=== PATIENT | female | born 1965 | race Hispanic/Latino ===

== ENCOUNTER 2017-05-04 13:41 | Inpatient (IN) | payer BC ==
[~2017-05-04] VITALS: Ht 154.9 cm; Wt 98.2 kg
[2017-05-04] MEDS ORDERED: ONDANSETRON HCL INJ 2 MG/ML VIAL IV STA (16:37)
[2017-05-04 17:21] LABS: BASOPHILS # (AUTO) 0.1 (0.0-0.1); BASOPHILS % 0.5 % (0.0-1.0); HEMATOCRIT 43.1 % (34.2-44.1); HEMOGLOBIN 14.9 g/dL (12.0-16.0); LYMPHOCYTES # (AUTO) 0.5 (1.0-3.2); LYMPHOCYTES % 3.1 % (18.0-39.1); MEAN CORPUSCULAR HEMOGLOBIN 31.4 pg (28-32); MEAN CORPUSCULAR HGB CONC 34.6 g/dL (31-35); MEAN CORPUSCULAR VOLUME 90.9 fL (81-99); MONOCYTES # (AUTO) 1.3 (0.2-0.8); MONOCYTES % 7.8 % (4.4-11.3); NEUTROPHILS # (AUTO) 14.9 (2.1-6.9); NEUTROPHILS % 87.8 % (38.7-80.0); PLATELET COUNT 255 x10e3/uL (140-360); RED BLOOD COUNT 4.74 x10e6/uL (3.6-5.1)
[2017-05-04 17:33] LABS: ALBUMIN/GLOBULIN RATIO 0.6 (0.8-2.0); ANION GAP 23.8 mmol/L (8-16); CALCIUM 10.9 mg/dL (8.4-10.2); CREATININE, SERUM 1.92 mg/dL (0.57-1.11); POTASSIUM 3.8 mmol/L (3.5-5.1)
--- NOTE | 2017-05-04 17:53 | Diagnostic Imaging Report ---
PROCEDURE: Frontal and lateral views of the chest. COMPARISON: None. INDICATIONS: NAUSEA/VOMITING, FEVER, ABSCESS FINDINGS: Lines/tubes: None. Lungs: The lungs are well inflated and clear. There is no evidence of pneumonia or pulmonary edema. Pleura: There is no pleural effusion or pneumothorax. Heart and mediastinum: The heart and the mediastinum are normal. Bones: No acute bony abnormality. IMPRESSION: 1. No acute cardiopulmonary disease. Elsy Bryan M.D. Dictated by: Elsy Bryan M.D. on 05/04/2017 at 18:01 Electronically approved by: Elsy Bryan M.D. on 05/04/2017 at 18:01
[2017-05-04] MEDS ORDERED: DIATRIZOATE MEGL/DIATRIZOA SOD 30 ML BTL PO ONE (18:28)
[2017-05-04] MEDS ORDERED: DEXTROSE 50% SYRINGE 50 ML IV PRN (21:00)
[2017-05-04] MEDS ORDERED: ONDANSETRON HCL INJ 2 MG/ML VIAL IV PRN (21:00)
--- NOTE | 2017-05-04 21:10 | Diagnostic Imaging Report ---
EXAM: CT Abdomen and Pelvis WITH contrast INDICATION: Nausea, vomiting, headache COMPARISON: None. TECHNIQUE: Abdomen and pelvis were scanned utilizing a multidetector helical scanner from the lung base to the pubic symphysis after administration of IV contrast. Coronal and sagittal reformations were obtained. Routine protocol is performed. IV CONTRAST: None. ORAL CONTRAST: None RADIATION DOSE: Total DLP: 857.16 mGy*cm Estimated effective dose: (DLP x 0.015 x size factor) mSv COMPLICATIONS: None FINDINGS: LINES and TUBES: None. LOWER THORAX: Coarse mitral valve calcifications HEPATOBILIARY: No focal hepatic lesions. No biliary ductal dilation. GALLBLADDER: Absent SPLEEN: No splenomegaly. PANCREAS: No focal masses or ductal dilatation. ADRENALS: No adrenal nodules KIDNEYS/URETERS: No hydronephrosis. The right kidney is significantly smaller than the left. No cystic or solid mass lesions. No stones. GI TRACT: No abnormal distention, wall thickening, or evidence of bowel obstruction. Appendix is normal. PELVIC ORGANS/BLADDER: Unremarkable. LYMPH NODES: No lymphadenopathy. VESSELS: There is mild atherosclerotic disease in the aorta and major arterial branches. PERITONEUM / RETROPERITONEUM: No free air or fluid. BONES: Multilevel degenerative changes of the thoracic and lumbar spine SOFT TISSUES: Linear tracts extending from the perianal region are partially visualized and could represent fistulae or abscesses. IMPRESSION: 1. Possible perianal fistulae or abscesses are poorly evaluated on this examination. Consider nonemergent MRI of the pelvis or further evaluation. 2. Otherwise no acute findings to explain the patient's symptoms. Srinath Harrison MD Signed by: Dr. Srinath Harrison M.D. on 05/04/2017 9:06 PM
[2017-05-04] MEDS ORDERED: HYDROMORPHONE 2MG/ML INJ IV PRN (21:15)
[2017-05-04] MEDS: INSULIN REGULAR, HUMAN 100 UNIT/1 ML 3ML VIAL SQ SCH (21:28)
[2017-05-04] MEDS: PIPER-TAZ 3.375 GM 50 ML IV SCH ×2 (21:29→22:00)
[2017-05-04] MEDS: SODIUM CHLORIDE 0.9% 1000ML 1,000 ML IV SCH (21:29)
[2017-05-04 22:00] VITALS: BP 139/68
[2017-05-04 22:45] VITALS: BP 139/68
[2017-05-04] MEDS: VANCOMYCIN 1GM/NS 250 ML 250 ML IV SCH (22:48)
[2017-05-05] MEDS ORDERED: ATORVASTATIN CA20 MG PO (01:17)
[2017-05-05] MEDS ORDERED: LEVOTHYROXINE88 MCG PO (01:17)
[2017-05-05] MEDS ORDERED: NAPROXEN500 MG PO (01:17)
[2017-05-05] MEDS ORDERED: NOVOLOG100 UNIT/1 SQ (01:17)
[2017-05-05] MEDS ORDERED: LANTUS 3ML100 UNITS/ SQ (01:17)
[2017-05-05] MEDS ORDERED: CETIRIZINE HCL10 MG PO (01:17)
[2017-05-05] MEDS ORDERED: PATANASE30.5 GM NS (01:17)
[2017-05-05] MEDS ORDERED: METFORMIN HCL500 MG PO (01:17)
[2017-05-05] MEDS ORDERED: CLARITIN-D 241 EACH PO (01:17)
[2017-05-05] MEDS ORDERED: GABAPENTIN400 MG PO (01:21)
[2017-05-05] MEDS ORDERED: VICTOZA 2-0.6 MG/0.1 SQ (01:21)
[2017-05-05] MEDS ORDERED: LOSARTAN POTAS100 MG PO (01:21)
[2017-05-05] MEDS ORDERED: HYDROCHLOROTHIA25 MG PO (01:21)
[2017-05-05] MEDS: SODIUM CHLORIDE 0.9% 1000ML 1,000 ML IV SCH ×3 (05:00→17:40)
[2017-05-05] MEDS: PIPER-TAZ 3.375 GM 50 ML IV SCH ×3 (06:00→22:10)
[2017-05-05 06:03] VITALS: BP 133/70
[2017-05-05 07:10] LABS: BASOPHILS # (AUTO) 0.1 (0.0-0.1); BASOPHILS % 0.4 % (0.0-1.0); HEMATOCRIT 37.8 % (34.2-44.1); LYMPHOCYTES % 5.7 % (18.0-39.1); MEAN CORPUSCULAR HEMOGLOBIN 31.3 pg (28-32); MEAN CORPUSCULAR HGB CONC 34.4 g/dL (31-35); MEAN CORPUSCULAR VOLUME 91.1 fL (81-99); MONOCYTES # (AUTO) 1.8 (0.2-0.8); MONOCYTES % 9.8 % (4.4-11.3); NEUTROPHILS # (AUTO) 14.9 (2.1-6.9); NEUTROPHILS % 82.8 % (38.7-80.0); PLATELET COUNT 229 x10e3/uL (140-360); RED BLOOD COUNT 4.15 x10e6/uL (3.6-5.1); RED CELL DISTRIBUTION WIDTH 13.2 % (11.7-14.4)
[2017-05-05] MEDS: INSULIN REGULAR, HUMAN 100 UNIT/1 ML 3ML VIAL SQ SCH ×4 (07:40→20:49)
[2017-05-05 07:44] LABS: ALBUMIN 2.2 g/dL (3.5-5.0); ALBUMIN/GLOBULIN RATIO 0.5 (0.8-2.0); ANION GAP 24.6 mmol/L (8-16); CREATININE, SERUM 1.66 mg/dL (0.57-1.11); POTASSIUM 3.6 mmol/L (3.5-5.1)
[2017-05-05 07:52] VITALS: BP 111/67
[2017-05-05] MEDS ORDERED: NON-FORMULARY MEDICATION (Cetirizine Hcl 10 MG) PO PRN (08:15)
[2017-05-05] MEDS ORDERED: LIRAGLUTIDE SQ SCH (09:00)
[2017-05-05] MEDS: HYDROCHLOROTHIAZIDE 25 MG TAB PO SCH (09:00)
[2017-05-05] MEDS ORDERED: NON-FORMULARY MEDICATION (Naproxen 500 MG) PO SCH (09:00)
[2017-05-05] MEDS: GABAPENTIN 400 MG CAP PO SCH ×3 (09:00→20:48)
[2017-05-05] MEDS ORDERED: LORATADINE/PSEUDOEPHEDRINE 24 HR SR TAB PO SCH (09:00)
[2017-05-05] MEDS ORDERED: LEVOTHYROXINE SODIUM 88 MCG TAB PO SCH (09:00)
[2017-05-05] MEDS: LOSARTAN POTASSIUM 100 MG TAB PO SCH (09:00)
[2017-05-05] MEDS ORDERED: OLOPATADINE HCL NS SCH (09:00)
[2017-05-05] MEDS: LORATADINE/PSEUDOEPHEDRINE 24 HR SR TAB PO SCH (09:00)
[2017-05-05] MEDS: METFORMIN HCL 500 MG TAB PO SCH ×2 (09:00→17:57)
[2017-05-05] MEDS: VANCOMYCIN 1GM/NS 250 ML 250 ML IV SCH (09:54)
[2017-05-05 10:06] VITALS: BP 111/67
[2017-05-05] MEDS: INSULIN DETEMIR 100 UNIT/ML PEN SQ SCH (10:13)
[2017-05-05 11:18] LABS: BAND NEUTROPHILS % (MANUAL) 8 %; LYMPHOCYTES % (MANUAL) 5 % (19-48); MONOCYTES % (MANUAL) 4 % (3.4-9.0); NEUTROPHILS % (MANUAL) 83 % (40-74)
[2017-05-05 11:19] LABS: PLATELET ESTIMATE ADEQUATE; PLATELET MORPHOLOGY COMMENT FEW LARGE; RBC MORPHOLOGY COMMENT NORMAL
--- NOTE | 2017-05-05 11:25 | History and Physical ---
HISTORY OF PRESENT ILLNESS: She is a 52-year-old female patient who presented to me with complaint of abscess and painful swelling with draining pus in the right buttock. The patient was also having dizziness, nausea, vomiting, headache. The patient was feeling very bad. Her blood sugar was 426 in the clinic. PAST MEDICAL HISTORY: Diabetes mellitus, hypertension, hyperlipidemia, arthritis, GERD, Ashby palsy, hypothyroidism. ALLERGIES: NO KNOWN DRUG ALLERGIES. MEDICATIONS: The patient was on insulin, thyroid medication, cholesterol medication and dose of metformin. The patient was noncompliant and was not checking her sugar. PAST SURGICAL HISTORY: The patient had hernia repair, tubal ligation, and gallbladder surgery. SOCIAL HISTORY: Denies smoking. Denies using alcohol. FAMILY HISTORY: Diabetes mellitus and stroke in the family. REVIEW OF SYSTEMS: Dizziness, nausea, vomiting, headache and right buttock painful swelling. PHYSICAL EXAMINATION GENERAL: She is a middle-aged female patient lying in bed, not in acute distress. VITAL SIGNS: Temperature 99.9, pulse rate 110, blood pressure 110/70. HEENT: Normocephalic, atraumatic. NECK: No JVD. No lymphadenopathy. LUNGS: Bilateral equal air entry. No rales. No rhonchi. HEART: S1 and S2 regular. No murmur or gallop. ABDOMEN: Soft. Bowel sounds are present. NEUROLOGIC: Nonfocal. No neurologic deficit. SKIN: Right buttock large, tender, fluctuant mass. ADMISSION IMPRESSION AND DIAGNOSES 1. Right buttock abscess. 2. Sepsis with white blood cell count of 18. 3. Diabetes mellitus with uncontrolled sugars. Sugar of 446. 4. Hypertension. 5. Hyperlipidemia. PLAN: The patient will be admitted with the above diagnoses. The patient will be treated with IV vancomycin and IV Zosyn. Surgical consultation with Dr. Mata was requested for I and D. The patient will have Accu-Cheks a.c. and nightly with sliding-scale coverage. Job#: [id number]
[2017-05-05] MEDS: INSULIN LISPRO 100 UNIT/1 ML 3ML VIAL SQ SCH ×2 (12:28→16:30)
[2017-05-05] MEDS ORDERED: LIDOCAINE HCL 1% LOCAL INJ 20 ML VIAL ONE (13:58)
[2017-05-05] MEDS ORDERED: HYDROCODONE/APAP 7.5MG-325MG 1 EA TAB PO PRN (15:45)
[2017-05-05] MEDS ORDERED: ONDANSETRON HCL INJ 2 MG/ML VIAL IV PRN (15:45)
[2017-05-05] MEDS ORDERED: ONDANSETRON HCL INJ 2 MG/ML VIAL ONE ×2 (16:09→18:20)
--- NOTE | 2017-05-05 16:59 | Operative Report ---
DATE OF PROCEDURE: May 05, 2017 PREOPERATIVE DIAGNOSIS: Abscess, right buttock. POSTOPERATIVE DIAGNOSIS: Abscess, right buttock, with necrotizing infection, right buttock. PROCEDURE: Incision and drainage of abscess, right buttock, with excisional debridement of right buttock necrotizing infection, skin and subcutaneous tissue, 120 square centimeters. EMAIL CAMPAIGN SPECIALIST: None. ANESTHESIA: General. INDICATIONS AND FINDINGS: Patient is a 52-year-old female who presented with complaints of pain and swelling of the right buttock. At surgery, there was a necrotizing infection involving the skin and subcutaneous tissue in the right buttock with abscess. Approximately 30 mL of purulent fluid was drained, and the area of debridement was approximately 10 x 12 cm involving skin and subcutaneous tissue. TECHNIQUE: After adequate general endotracheal anesthesia, with the patient in the lithotomy position, the right buttock was prepped and draped in a sterile fashion with Betadine solution. There was a draining sinus with purulent fluid. The sinus tract was opened. Additional purulent fluid drained. A sample was taken for culture and sensitivity. Incision was made through this area, and the abscess cavity was entered. A total of about 30 mL of purulent fluid was drained. There was also a large amount of necrotic tissue. The necrotic skin and subcutaneous tissue were excised back to healthy bleeding tissue. The area of the debridement was approximately 10 x 12 cm. Debridement was done with electrocautery. Once all the necrotic tissue was excised, hemostasis was achieved with electrocautery. The wound was irrigated with saline, then dressed open with saline-moistened gauze and a sterile dressing applied. Patient tolerated the procedure well. Estimated blood loss was 25 mL. There were no complications. All counts were correct. Patient was taken to the recovery room in satisfactory condition. Job#: [id number] cc:BEV RANDALL MD
[2017-05-05] MEDS: PATANASE NS SCH (17:00)
--- NOTE | 2017-05-05 17:16 | Consultation ---
DATE OF CONSULTATION: May 05, 2017 REFERRING PHYSICIAN: Dr. Fabricio Rangel. HISTORY OF PRESENT ILLNESS: Patient is a 52-year-old female with history of diabetes, hypertension, hyperlipidemia, arthritis and hypothyroidism who presented to the emergency room with complaints of pain in her right buttock with purulent drainage. She also complains of nausea, vomiting and dizziness. Symptoms started a few days ago. She also was found to have elevated blood sugar in the emergency room. PAST MEDICAL HISTORY: As stated above. History of diabetes, hypertension, hyperlipidemia, arthritis, gastroesophageal reflux disease, previous Ashby's palsy, hypothyroidism. HOME MEDICATIONS: Insulin, thyroid medicine, cholesterol medication and metformin. PAST SURGICAL HISTORY: She has had previous hernia repair, tubal ligation and cholecystectomy. ALLERGIES: NO KNOWN DRUG ALLERGIES. FAMILY HISTORY: Significant for diabetes and cerebrovascular accident. SOCIAL HISTORY: Patient does not smoke cigarettes and does not drink alcohol. REVIEW OF SYSTEMS: As stated above. She has not had any fever. PHYSICAL EXAMINATION: VITALS: Normal. GENERAL: The patient is awake and alert and in no distress. HEENT: Reveals no scleral icterus. NECK: Has no masses. LUNGS: Equal breath sounds, clear bilaterally. CARDIAC: Regular rate and rhythm with no murmur. ABDOMEN: Soft without tenderness. BUTTOCK AREA: On the right buttock there is area of erythema and induration with an open area of purulent drainage. Does not seem to communicate with the rectum, however. EXTREMITIES: No edema. LABORATORY DATA: White blood count 18,000 on arrival. Hemoglobin and hematocrit are normal. Chemistries: BUN 23, creatinine 1.66 and glucose most recent is 251. ASSESSMENT: A 52-year-old female with an abscess on the right buttock. PLAN: Incision and drainage of abscess to be done in operating room today. Procedure was explained to the patient including risks, benefits and alternatives. She understands the procedure. She has had the opportunity to ask questions. Thank you asking see me to see Ms. Javed. Job#: [id number]
[2017-05-05] MEDS ORDERED: PROPOFOL IV EMULSION 10 MG/ML 20 ML VIAL ONE (18:20)
[2017-05-05] MEDS ORDERED: SEVOFLURANE INHAL SOLN 250 ML PEN BTL ONE (18:20)
[2017-05-05] MEDS ORDERED: LIDOCAINE HCL 2% LOCAL INJ 5 ML SDV VIAL INJ ONE (18:20)
[2017-05-05] MEDS ORDERED: FENTANYL CITRATE/PF 100MCG/2 ML INJ ONE (19:16)
[2017-05-05] MEDS ORDERED: MIDAZOLAM HCL 2 MG/2 ML VIAL ONE (19:16)
[2017-05-05 20:00] VITALS: BP 131/77
[2017-05-05] MEDS: ATORVASTATIN 20 MG TAB PO SCH (20:48)
[2017-05-06] VITALS: BP 106/56
[2017-05-06] MEDS: SODIUM CHLORIDE 0.9% 1000ML 1,000 ML IV SCH (01:36)
[2017-05-06] MEDS: VANCOMYCIN 1GM/NS 250 ML 250 ML IV SCH ×2 (03:15→20:57)
[2017-05-06] MEDS: PIPER-TAZ 3.375 GM 50 ML IV SCH ×3 (05:32→22:38)
[2017-05-06] MEDS: LEVOTHYROXINE SODIUM 88 MCG TAB PO SCH (05:33)
[2017-05-06 07:15] LABS: BASOPHILS # (AUTO) 0.1 (0.0-0.1); BASOPHILS % 0.7 % (0.0-1.0); EOSINOPHILS % 0.2 % (0.0-6.0); HEMATOCRIT 34.3 % (34.2-44.1); HEMOGLOBIN 11.8 g/dL (12.0-16.0); LYMPHOCYTES # (AUTO) 1.4 (1.0-3.2); LYMPHOCYTES % 11.2 % (18.0-39.1); MEAN CORPUSCULAR HEMOGLOBIN 31.5 pg (28-32); MEAN CORPUSCULAR HGB CONC 34.4 g/dL (31-35); MEAN CORPUSCULAR VOLUME 91.5 fL (81-99); MONOCYTES # (AUTO) 1.1 (0.2-0.8); NEUTROPHILS # (AUTO) 9.8 (2.1-6.9); NEUTROPHILS % 77.6 % (38.7-80.0); PLATELET COUNT 203 x10e3/uL (140-360); RED BLOOD COUNT 3.75 x10e6/uL (3.6-5.1); RED CELL DISTRIBUTION WIDTH 13.5 % (11.7-14.4)
[2017-05-06 07:46] VITALS: BP 97/65
[2017-05-06 07:53] LABS: ALBUMIN 1.7 g/dL (3.5-5.0); ALBUMIN/GLOBULIN RATIO 0.5 (0.8-2.0); CALCIUM 8.2 mg/dL (8.4-10.2); CREATININE, SERUM 1.84 mg/dL (0.57-1.11)
[2017-05-06 08:26] LABS: ANION GAP 12.7 mmol/L (8-16)
[2017-05-06 08:27] LABS: POTASSIUM 2.7 mmol/L (3.5-5.1)
[2017-05-06] MEDS: LORATADINE/PSEUDOEPHEDRINE 24 HR SR TAB PO SCH (09:00)
[2017-05-06] MEDS ORDERED: NAPROXEN 250 MG TAB PO SCH (09:00)
[2017-05-06] MEDS ORDERED: POTASSIUM CHLORIDE 20 MEQ TAB CR PO ONE ×2 (09:00→14:30)
[2017-05-06] MEDS: PATANASE NS SCH ×2 (09:00→16:30)
[2017-05-06] MEDS: LOSARTAN POTASSIUM 100 MG TAB PO SCH (09:00)
[2017-05-06] MEDS: [UNRECOGNIZED DRUG - OTHER] SC SCH (09:00)
[2017-05-06] MEDS: VICTOZA SC SCH (09:00)
[2017-05-06] MEDS: HYDROCHLOROTHIAZIDE 25 MG TAB PO SCH (09:00)
[2017-05-06] MEDS: INSULIN DETEMIR 100 UNIT/ML PEN SQ SCH (10:01)
[2017-05-06] MEDS: INSULIN REGULAR, HUMAN 100 UNIT/1 ML 3ML VIAL SQ SCH ×4 (10:01→20:59)
[2017-05-06] MEDS: INSULIN LISPRO 100 UNIT/1 ML 3ML VIAL SQ SCH ×5 (10:01→20:58)
[2017-05-06] MEDS: GABAPENTIN 400 MG CAP PO SCH ×3 (10:41→20:58)
[2017-05-06] MEDS: METFORMIN HCL 500 MG TAB PO SCH (10:42)
[2017-05-06 12:08] LABS: BAND NEUTROPHILS % (MANUAL) 1 %; LYMPHOCYTES % (MANUAL) 10 % (19-48); MONOCYTES % (MANUAL) 7 % (3.4-9.0); NEUTROPHILS % (MANUAL) 82 % (40-74); PLATELET ESTIMATE ADEQUATE; PLATELET MORPHOLOGY COMMENT NORMAL; RBC MORPHOLOGY COMMENT NORMAL
[2017-05-06 13:05] VITALS: BP 98/67
[2017-05-06] MEDS ORDERED: DEXTROSE 50% SYRINGE 50 ML IV PRN (14:00)
[2017-05-06] MEDS ORDERED: SODIUM CHLORIDE 0.9% IV SCH (15:00)
[2017-05-06] MEDS ORDERED: POTASSIUM CHLORIDE IV SCH (15:00)
[2017-05-06 17:32] VITALS: BP 104/65
[2017-05-06 20:00] VITALS: BP 92/55
[2017-05-06] MEDS: ATORVASTATIN 20 MG TAB PO SCH (20:57)
[2017-05-07] VITALS: BP 134/69
[2017-05-07 04:00] VITALS: BP 119/65
[2017-05-07] MEDS: PIPER-TAZ 3.375 GM 50 ML IV SCH ×3 (06:00→22:00)
[2017-05-07] MEDS: LEVOTHYROXINE SODIUM 88 MCG TAB PO SCH (06:00)
[2017-05-07] MEDS: INSULIN LISPRO 100 UNIT/1 ML 3ML VIAL SQ SCH ×7 (07:30→21:23)
[2017-05-07] MEDS: INSULIN REGULAR, HUMAN 100 UNIT/1 ML 3ML VIAL SQ SCH ×2 (07:30→12:40)
[2017-05-07 07:48] LABS: BASOPHILS # (AUTO) 0.1 (0.0-0.1); BASOPHILS % 0.5 % (0.0-1.0); EOSINOPHILS # (AUTO) 0.1 (0.0-0.4); EOSINOPHILS % 0.7 % (0.0-6.0); HEMATOCRIT 32.6 % (34.2-44.1); HEMOGLOBIN 11.2 g/dL (12.0-16.0); LYMPHOCYTES # (AUTO) 1.4 (1.0-3.2); LYMPHOCYTES % 10.2 % (18.0-39.1); MEAN CORPUSCULAR HEMOGLOBIN 31.7 pg (28-32); MEAN CORPUSCULAR HGB CONC 34.4 g/dL (31-35); MEAN CORPUSCULAR VOLUME 92.4 fL (81-99); MONOCYTES # (AUTO) 1.1 (0.2-0.8); MONOCYTES % 8.1 % (4.4-11.3); NEUTROPHILS # (AUTO) 10.8 (2.1-6.9); NEUTROPHILS % 79.2 % (38.7-80.0); PLATELET COUNT 197 x10e3/uL (140-360); RED BLOOD COUNT 3.53 x10e6/uL (3.6-5.1); RED CELL DISTRIBUTION WIDTH 13.8 % (11.7-14.4)
[2017-05-07] MEDS: LORATADINE/PSEUDOEPHEDRINE 24 HR SR TAB PO SCH (08:11)
[2017-05-07] MEDS: GABAPENTIN 400 MG CAP PO SCH ×4 (08:11→21:20)
[2017-05-07] MEDS: LOSARTAN POTASSIUM 100 MG TAB PO SCH (08:11)
[2017-05-07] MEDS: VICTOZA SC SCH (08:11)
[2017-05-07] MEDS: [UNRECOGNIZED DRUG - OTHER] SC SCH (08:11)
[2017-05-07] MEDS: PATANASE NS SCH ×2 (08:11→17:00)
[2017-05-07] MEDS: INSULIN DETEMIR 100 UNIT/ML PEN SQ SCH (08:13)
[2017-05-07 08:26] LABS: ALBUMIN 1.6 g/dL (3.5-5.0); ALBUMIN/GLOBULIN RATIO 0.5 (0.8-2.0); CHOL/HDL RATIO 5.9 (3.0-3.6); CREATININE, SERUM 3.23 mg/dL (0.57-1.11); MAGNESIUM 1.3 MG/DL (1.3-2.1)
[2017-05-07 08:31] LABS: THYROID STIMULATING HORMONE 0.741 uIU/mL (0.350-4.940)
[2017-05-07 10:46] VITALS: BP 110/54
[2017-05-07] MEDS: SODIUM CHLORIDE 0.9% 1000ML 1,000 ML IV SCH ×2 (12:00→22:00)
[2017-05-07] MEDS ORDERED: POTASSIUM CHLORIDE 20 MEQ TAB CR PO ONE (12:30)
[2017-05-07 16:37] VITALS: BP 116/62
[2017-05-07 20:00] VITALS: BP 89/56
[2017-05-07] MEDS: ATORVASTATIN 20 MG TAB PO SCH (21:19)
[2017-05-08] VITALS (7 sets, daily range): BP systolic 85–150; BP diastolic 55–81
[2017-05-08] MEDS ORDERED: ACETAMINOPHEN 325 MG TAB PO PRN (00:45)
[2017-05-08] MEDS ORDERED: SODIUM CHLORIDE 0.9% 1000ML 500 ML IV ONE (00:45)
[2017-05-08] MEDS ORDERED: SODIUM CHLORIDE 0.9% 500ML 500 ML ONE (00:46)
[2017-05-08] MEDS: LEVOTHYROXINE SODIUM 88 MCG TAB PO SCH (05:39)
[2017-05-08] MEDS: PIPER-TAZ 3.375 GM 50 ML IV SCH ×3 (05:41→21:39)
[2017-05-08 07:09] LABS: BASOPHILS # (AUTO) 0.1 (0.0-0.1); BASOPHILS % 0.6 % (0.0-1.0); EOSINOPHILS # (AUTO) 0.1 (0.0-0.4); EOSINOPHILS % 0.7 % (0.0-6.0); HEMATOCRIT 31.7 % (34.2-44.1); HEMOGLOBIN 10.7 g/dL (12.0-16.0); LYMPHOCYTES # (AUTO) 1.9 (1.0-3.2); LYMPHOCYTES % 12.2 % (18.0-39.1); MEAN CORPUSCULAR HEMOGLOBIN 31.3 pg (28-32); MEAN CORPUSCULAR HGB CONC 33.8 g/dL (31-35); MEAN CORPUSCULAR VOLUME 92.7 fL (81-99); MONOCYTES # (AUTO) 1.1 (0.2-0.8); MONOCYTES % 6.9 % (4.4-11.3); NEUTROPHILS # (AUTO) 11.8 (2.1-6.9); NEUTROPHILS % 77.5 % (38.7-80.0); PLATELET COUNT 194 x10e3/uL (140-360); RED BLOOD COUNT 3.42 x10e6/uL (3.6-5.1); RED CELL DISTRIBUTION WIDTH 13.7 % (11.7-14.4)
[2017-05-08] MEDS: INSULIN LISPRO 100 UNIT/1 ML 3ML VIAL SQ SCH ×7 (07:30→20:41)
[2017-05-08 07:33] LABS: ALBUMIN 1.5 g/dL (3.5-5.0); ALBUMIN/GLOBULIN RATIO 0.4 (0.8-2.0); ANION GAP 13.6 mmol/L (8-16); CALCIUM 7.7 mg/dL (8.4-10.2); CREATININE, SERUM 3.8 mg/dL (0.57-1.11); POTASSIUM 3.6 mmol/L (3.5-5.1)
[2017-05-08 07:45] LABS: MAGNESIUM 1.2 MG/DL (1.3-2.1)
[2017-05-08 07:59] LABS: INR 1.08; PROTHROMBIN TIME 14.6 seconds (11.9-14.5)
[2017-05-08] MEDS: SODIUM CHLORIDE 0.9% 1000ML 1,000 ML IV SCH ×2 (08:00→18:00)
--- NOTE | 2017-05-08 08:59 | Consultation ---
DATE OF CONSULTATION: May 07, 2017 RENAL CONSULTATION REASON FOR CONSULTATION: Acute kidney injury. HISTORY OF PRESENT ILLNESS: A 52-year-old female with a history of diabetes, hypertension, who presented to [facility] with pain and swelling in the right buttock. Patient was also having dizziness, nausea, vomiting, and was taking Advil for pain. Patient was found to have abscess and underwent I and D. Was continued on IV antibiotics. Was found to have worsening kidney function, and nephrology consultation was called. Patient denies having any history of kidney disease in the past. PAST MEDICAL HISTORY 1. Diabetes, type 2. 2. Hypertension. 3. Dyslipidemia. 4. Arthritis. 5. GERD. 6. History of Ashby's palsy. 7. Hypothyroidism. PAST SURGICAL HISTORY 1. Cholecystectomy. 2. Bilateral tubal ligation. 3. Hernia repair. SOCIAL HISTORY: No tobacco. No alcohol. No IV drugs. FAMILY HISTORY: Positive for diabetes. No family history of kidney disease. ALLERGIES: NO KNOWN DRUG ALLERGIES. REVIEW OF SYSTEMS: Pain in her buttock. Otherwise, currently no nausea. No vomiting. No diarrhea. All other systems negative. MEDICATIONS: Include losartan, Zosyn, vancomycin, Naprosyn which has been discontinued, metformin, hydrochlorothiazide. PHYSICAL EXAMINATION VITALS: Blood pressure 110/54, pulse 89, respiratory rate 20, temperature 97.6. GENERAL: No apparent distress. HEENT: Oropharynx clear. No scleral icterus. No peripheral edema. NECK: Supple. No elevation in jugular venous pressure. No lymphadenopathy. CHEST: Clear to auscultation anteriorly bilaterally. CARDIOVASCULAR: Regular rate and rhythm. ABDOMEN: Soft. Positive bowel sounds. No tenderness. No rebound. EXTREMITIES: No edema. No clubbing. No cyanosis. BUTTOCKS: Some swelling. Dressing in place. LABS: Sodium 137, potassium 3, chloride 103, CO2 23, BUN 32, creatinine 3.23, glucose 78. Creatinine on admission was 1.92. Hemoglobin A1c 13.8. Magnesium 1.3, albumin 1.6. White count 17, hemoglobin 14.9, hematocrit 43.1. Hemoglobin 11.[address] of the abdomen and pelvis with contrast with no hydronephrosis. Right kidney is significantly smaller than the left. Possible perianal fistula abscess. ASSESSMENT AND PLAN 1. Acute kidney injury: Suspect multifactorial due to acute tubular necrosis, some volume depletion, as well as contrast induced nephropathy. Will resume intravenous fluids. Check urine studies. Patient may also have some underlying chronic kidney disease. Will not get any further imaging at this time. In reviewing her records, her baseline creatinine was 0.8. 2. Hypokalemia: Will replace. 3. Euvolemic to dry examination: Resume intravenous fluids as above. 4. Perirectal abscess: Continue antibiotics. 5. Hypertension: Hold losartan in the setting of acute kidney injury. Job#: [id number] NM
[2017-05-08] MEDS: VICTOZA SC SCH (09:00)
[2017-05-08] MEDS: PATANASE NS SCH ×2 (09:00→17:00)
[2017-05-08] MEDS: [UNRECOGNIZED DRUG - OTHER] SC SCH (09:00)
[2017-05-08] MEDS: INSULIN DETEMIR 100 UNIT/ML PEN SQ SCH (09:00)
[2017-05-08] MEDS: LORATADINE/PSEUDOEPHEDRINE 24 HR SR TAB PO SCH (09:00)
[2017-05-08] MEDS ORDERED: VANCOMYCIN 1GM/NS 250 ML 250 ML IV SCH (09:00)
[2017-05-08] MEDS ORDERED: LOPERAMIDE HCL 2 MG CAP PO PRN (10:30)
[2017-05-08] MEDS ORDERED: CHOLESTYRAMINE 4 GM PACKET PO PRN (10:30)
--- NOTE | 2017-05-08 11:53 | Diagnostic Imaging Report ---
PROCEDURE:US RETROPERITONEAL ( KIDNEY ). COMPARISON:None. INDICATIONS:KIESHA TECHNIQUE: Colon-scale and color sonographic images of the bilateral kidneys and bladder where obtained in transverse and longitudinal planes. FINDINGS: RIGHT KIDNEY: 10.2 cm, cortex 2.5 cm Cysts: None. Solid masses: None. Asymmetry in the mid right kidney may represent a column of Homero. Stones: None. Hydronephrosis: None. Echogenicity: Normal. LEFT KIDNEY: 13.4 cm, cortex 2.9 cm Cysts: None. Solid masses: None. Stones: None. Hydronephrosis: None. Echogenicity: Normal. Bladder: Bilateral ureteral jets are visualized. Normal contour. CONCLUSION: No acute sonographic abnormality. Renal size discrepancy, left kidney measuring greater than right. Dictated by: Gilberto Malone M.D. on 05/08/2017 at 12:02 Electronically approved by: Gilberto Malone M.D. on 05/08/2017 at 12:02
[2017-05-08] MEDS ORDERED: MAGNESIUM SULF 1GRAM/DEXTROSE 100 ML IV ONE (12:30)
[2017-05-08 14:15] LABS: BILIRUBIN,URINE NEGATIVE (NEGATIVE); KETONES,URINE NEGATIVE (NEGATIVE); LEUKOCYTE ESTERASE ,URINE 2+ (NEGATIVE); NITRITE,URINE NEGATIVE (NEGATIVE); URINE UROBILINOGEN 0.2 mg/dL (0.2 - 1)
[2017-05-08] MEDS ORDERED: PANTOPRAZOLE SOD 40 MG TABEC PO ONE (14:15)
[2017-05-08 14:28] LABS: CLARITY,URINE CLOUDY (CLEAR); COLOR,URINE YELLOW (YELLOW); PROTEIN,URINE DIPSTICK TRACE (NEGATIVE)
[2017-05-08 14:30] LABS: BACTERIA,URINE FEW /HPF; EPITHELIAL CELLS,URINE MODERATE /LPF; RBC,URINE 21-50 /HPF (0-5); WBC,URINE (MAN) 21-50 /HPF (0-5); YEAST,URINE MANY
[2017-05-08 14:35] LABS: CREATININE,URINE RANDOM 46.82 mg/dL (47-110); SODIUM,URINE 28 mmol/L; TOTAL PROTEIN, URINE 23.1 mg/dL (1-14)
[2017-05-08] MEDS: GABAPENTIN 400 MG CAP PO SCH ×2 (15:00→21:00)
[2017-05-08 15:23] LABS: EOSINOPHIL SMEAR,URINE NONE SEEN (NONE SEEN)
--- NOTE | 2017-05-08 16:04 | Consultation ---
DATE OF CONSULTATION: May 08, 2017 ATTENDING PHYSICIAN: Dr. Benjie Rangel. REASON FOR CONSULTATION: Abscess. Thank you, Dr. Rangel, for asking me to see this patient. HISTORY OF PRESENT ILLNESS: The patient is a 52-year-old woman referred for abscess. She was admitted through the emergency department on May 04, 2017 with right buttock abscess. She presented to the emergency department with fever, malaise, nausea, and vomiting. The patient noted progressively painful bump of the right buttock a few days earlier. The patient denies insect or spider bite and trauma. She noted the right buttock discomfort after air travel to [place] during the holidays. In the emergency department, vital signs were recorded as febrile, tachycardia, normal respiratory rate, and normal blood pressure in the emergency physician note; however, the exact readings are not available at this time for review. Initial laboratory studies showed white blood cell count of 17,000 with 87.8% neutrophils; BUN 15, creatinine of 1.92, and blood glucose 289. Chest x-ray showed no acute finding. CT scan of the abdomen and pelvis showed possible perianal fistulae and abscesses. Patient was evaluated by the surgical service and successfully underwent incision and debridement of right buttock abscess. PAST MEDICAL HISTORY: Diabetes mellitus type 2, hypertension, hyperlipidemia, hypothyroidism, Ashby's palsy, and gastroesophageal reflux disease. PAST SURGICAL HISTORY: Cholecystectomy, hernia repair, and tubal ligation. ALLERGIES: NO KNOWN DRUG ALLERGIES. MEDICATIONS: The current antibiotic is Zosyn 3.375 gram IV piggyback q.8 hours. Vancomycin is on hold due to high trough. IMMUNIZATIONS: She received influenza vaccine in March 2017. FAMILY HISTORY: Noncontributory. SOCIAL HISTORY: No alcohol or tobacco use. REVIEW OF SYSTEMS: As per history of present illness. Patient began having diarrhea earlier today, but received a dose of Imodium with some relief. The fever has subsided. Also nausea and vomiting subsided. Has no abdominal pain or dysuria. PHYSICAL EXAMINATION GENERAL: In no acute distress. VITAL SIGNS: T-max 100.7, pulse 94, respiratory rate 18, blood pressure 125/65. Weight 216 pounds. HEENT: Normocephalic. There is no icterus or injection of conjunctivae. There is no ear or nasal discharge. Moist oral mucosa. No pharyngeal erythema or exudate. NECK: Supple. No lymphadenopathy. LUNGS: Clear to auscultation bilaterally. HEART: Normal S1 and S2, regular. ABDOMEN: Soft and nontender. EXTREMITIES: There is no edema, clubbing, or cyanosis. Dorsalis pedis and posterior tibial pulses are palpable. SKIN: Right buttock wound. PLUNGER SCOOP OPERATOR: Awake, alert, and oriented to person, place, and time. There is decreased sensation on monofilament examination of the feet. The vibration sensation is normal. Nonfocal. LABORATORY AND DIAGNOSTICS: WBC 15,230, hemoglobin 10.7, platelet 194,000, neutrophil 77.5, lymph 12.2, mono 6.9, eosinophil 0.7, basophil 0.6. BUN 33, creatinine 3.8, blood glucose 205. Wound culture grew E. coli. Blood culture showed no growth. IMPRESSION 1. Resolving sepsis due to right buttock abscess. 2. Diarrhea with worse leukocytosis, concerning for Clostridium difficile infection. 3. Diabetes mellitus type 2 with peripheral neuropathy, uncontrolled. 4. Gastroesophageal reflux disease. 5. Acute kidney injury on chronic kidney disease. PLAN 1. Discontinue vancomycin if not yet done. Hold Imodium. 2. Check stool C. difficile DNA. SHAE PATEL MD Job#: [id number] [facility]
[2017-05-08] MEDS: ATORVASTATIN 20 MG TAB PO SCH (20:49)
[2017-05-09] VITALS: BP 140/70
[2017-05-09] MEDS: SODIUM CHLORIDE 0.9% 1000ML 1,000 ML IV SCH (00:40)
[2017-05-09 04:10] VITALS: BP 109/64
[2017-05-09] MEDS: PIPER-TAZ 3.375 GM 50 ML IV SCH ×3 (06:00→20:59)
[2017-05-09] MEDS: LEVOTHYROXINE SODIUM 88 MCG TAB PO SCH (06:00)
[2017-05-09 06:47] LABS: BASOPHILS # (AUTO) 0.1 (0.0-0.1); BASOPHILS % 0.6 % (0.0-1.0); EOSINOPHILS # (AUTO) 0.2 (0.0-0.4); HEMATOCRIT 31.5 % (34.2-44.1); HEMOGLOBIN 10.7 g/dL (12.0-16.0); LYMPHOCYTES # (AUTO) 2.1 (1.0-3.2); LYMPHOCYTES % 13.1 % (18.0-39.1); MEAN CORPUSCULAR HEMOGLOBIN 31.6 pg (28-32); MEAN CORPUSCULAR VOLUME 92.9 fL (81-99); MONOCYTES # (AUTO) 1.1 (0.2-0.8); MONOCYTES % 7.1 % (4.4-11.3); NEUTROPHILS % 75.3 % (38.7-80.0); PLATELET COUNT 201 x10e3/uL (140-360); RED BLOOD COUNT 3.39 x10e6/uL (3.6-5.1); RED CELL DISTRIBUTION WIDTH 13.6 % (11.7-14.4)
[2017-05-09 07:12] LABS: ALBUMIN 1.5 g/dL (3.5-5.0); ALBUMIN/GLOBULIN RATIO 0.4 (0.8-2.0); ANION GAP 14.8 mmol/L (8-16); CALCIUM 7.8 mg/dL (8.4-10.2); CREATININE, SERUM 3.5 mg/dL (0.57-1.11); MAGNESIUM 1.5 MG/DL (1.3-2.1); POTASSIUM 3.8 mmol/L (3.5-5.1)
[2017-05-09] MEDS: INSULIN LISPRO 100 UNIT/1 ML 3ML VIAL SQ SCH ×7 (07:30→20:58)
[2017-05-09 08:00] VITALS: BP_SYST 109; BP_SYST 144; BP_DIAS 64; BP_DIAS 78
[2017-05-09 08:11] LABS: EOSINOPHILS % (MANUAL) 1 % (0-7); LYMPHOCYTES % (MANUAL) 13 % (19-48); METAMYELOCYTES % (MANUAL) 1 % (0-0); MONOCYTES % (MANUAL) 4 % (3.4-9.0); MYELOCYTES % (MANUAL) 1 % (0-0); NEUTROPHILS % (MANUAL) 79 % (40-74)
[2017-05-09 08:13] LABS: TOXIC GRANULATION MODERATE
[2017-05-09 08:14] LABS: ANISOCYTOSIS SLIGHT; HYPOCHROMASIA SLIGHT; PLATELET ESTIMATE ADEQUATE; PLATELET MORPHOLOGY COMMENT NORMAL; RBC MORPHOLOGY COMMENT NORMAL
[2017-05-09] MEDS: INSULIN DETEMIR 100 UNIT/ML PEN SQ SCH (09:00)
[2017-05-09] MEDS: LORATADINE/PSEUDOEPHEDRINE 24 HR SR TAB PO SCH (09:00)
[2017-05-09] MEDS: [UNRECOGNIZED DRUG - OTHER] SC SCH (09:00)
[2017-05-09] MEDS: PATANASE NS SCH ×2 (09:00→17:00)
[2017-05-09] MEDS: VICTOZA SC SCH (09:00)
[2017-05-09] MEDS: GABAPENTIN 400 MG CAP PO SCH ×3 (09:00→20:37)
[2017-05-09 11:59] VITALS: BP 156/85
[2017-05-09] MEDS: SODIUM BICARBONATE 8.4% 75 ML in SODIUM CHLORIDE 0.45% 1,000 ML IV SCH (12:15)
[2017-05-09 16:12] VITALS: BP 150/85
[2017-05-09] MEDS: ATORVASTATIN 20 MG TAB PO SCH (20:37)
[2017-05-09 21:33] VITALS: BP 159/82
[2017-05-10] VITALS (7 sets, daily range): BP systolic 116–186; BP diastolic 64–87
[2017-05-10] MEDS: SODIUM BICARBONATE 8.4% 75 ML in SODIUM CHLORIDE 0.45% 1,000 ML IV SCH ×2 (05:12→22:58)
[2017-05-10] MEDS: PIPER-TAZ 3.375 GM 50 ML IV SCH ×3 (05:12→22:59)
[2017-05-10] MEDS: LEVOTHYROXINE SODIUM 88 MCG TAB PO SCH (05:12)
[2017-05-10 06:26] LABS: BASOPHILS # (AUTO) 0.1 (0.0-0.1); BASOPHILS % 0.6 % (0.0-1.0); EOSINOPHILS # (AUTO) 0.2 (0.0-0.4); HEMATOCRIT 30.8 % (34.2-44.1); HEMOGLOBIN 10.7 g/dL (12.0-16.0); LYMPHOCYTES % 13.8 % (18.0-39.1); MEAN CORPUSCULAR HEMOGLOBIN 31.8 pg (28-32); MEAN CORPUSCULAR HGB CONC 34.7 g/dL (31-35); MEAN CORPUSCULAR VOLUME 91.4 fL (81-99); MONOCYTES # (AUTO) 1.4 (0.2-0.8); MONOCYTES % 9.9 % (4.4-11.3); NEUTROPHILS % 69.4 % (38.7-80.0); PLATELET COUNT 214 x10e3/uL (140-360); RED BLOOD COUNT 3.37 x10e6/uL (3.6-5.1); RED CELL DISTRIBUTION WIDTH 13.3 % (11.7-14.4)
[2017-05-10 07:03] LABS: ALANINE AMINOTRANSFERASE 10 IU/L (0-55); ALBUMIN 1.6 g/dL (3.5-5.0); ALBUMIN/GLOBULIN RATIO 0.4 (0.8-2.0); ALKALINE PHOSPHATASE 123 IU/L (40-150); ANION GAP 14.6 mmol/L (8-16); BLOOD UREA NITROGEN 31 mg/dL (7-26); BUN/CREATININE RATIO 10 (6-25); CARBON DIOXIDE 19 mmol/L (22-29); CHLORIDE 102 mmol/L (98-107); CREATININE, SERUM 3.25 mg/dL (0.57-1.11); EST GLOMERULAR FILTRATION RATE 15 ML/MIN (60-); GLUCOSE 178 mg/dL (74-118); MAGNESIUM 1.6 MG/DL (1.3-2.1); PHOSPHORUS 3.5 MG/DL (2.3-4.7); POTASSIUM 3.6 mmol/L (3.5-5.1); SODIUM 132 mmol/L (136-145)
[2017-05-10 07:32] LABS: ANISOCYTOSIS SLIGHT; EOSINOPHILS % (MANUAL) 1 % (0-7); HYPOCHROMASIA SLIGHT; LYMPHOCYTES % (MANUAL) 22 % (19-48); MONOCYTES % (MANUAL) 8 % (3.4-9.0); NEUTROPHILS % (MANUAL) 68 % (40-74); PLATELET ESTIMATE ADEQUATE; PLATELET MORPHOLOGY COMMENT NORMAL; RBC MORPHOLOGY COMMENT NORMAL
[2017-05-10] MEDS: INSULIN LISPRO 100 UNIT/1 ML 3ML VIAL SQ SCH ×7 (08:55→21:00)
[2017-05-10] MEDS: [UNRECOGNIZED DRUG - OTHER] SC SCH (09:00)
[2017-05-10] MEDS: LORATADINE/PSEUDOEPHEDRINE 24 HR SR TAB PO SCH (09:00)
[2017-05-10] MEDS: VICTOZA SC SCH (09:00)
[2017-05-10] MEDS: PATANASE NS SCH ×2 (09:00→16:18)
[2017-05-10] MEDS: GABAPENTIN 400 MG CAP PO SCH ×3 (09:17→22:59)
[2017-05-10] MEDS: INSULIN DETEMIR 100 UNIT/ML PEN SQ SCH (09:19)
[2017-05-10] MEDS: ATORVASTATIN 20 MG TAB PO SCH (22:59)
[2017-05-11] VITALS (7 sets, daily range): BP systolic 122–198; BP diastolic 74–93
[2017-05-11] MEDS: CLONIDINE HCL 0.1 MG TAB PO PRN ×2 (00:54→23:00)
[2017-05-11 06:48] LABS: ANION GAP 13.9 mmol/L (8-16); CALCIUM 8.1 mg/dL (8.4-10.2); CREATININE, SERUM 2.63 mg/dL (0.57-1.11); POTASSIUM 3.9 mmol/L (3.5-5.1)
[2017-05-11] MEDS: LEVOTHYROXINE SODIUM 88 MCG TAB PO SCH (06:55)
[2017-05-11] MEDS: PIPER-TAZ 3.375 GM 50 ML IV SCH ×3 (06:55→23:00)
[2017-05-11] MEDS: INSULIN LISPRO 100 UNIT/1 ML 3ML VIAL SQ SCH ×7 (07:30→21:00)
[2017-05-11] MEDS: INSULIN DETEMIR 100 UNIT/ML PEN SQ SCH (09:00)
[2017-05-11] MEDS: VICTOZA SC SCH (09:00)
[2017-05-11] MEDS: LORATADINE/PSEUDOEPHEDRINE 24 HR SR TAB PO SCH (09:00)
[2017-05-11] MEDS: PATANASE NS SCH ×2 (09:00→17:00)
[2017-05-11] MEDS: [UNRECOGNIZED DRUG - OTHER] SC SCH (09:00)
[2017-05-11] MEDS: GABAPENTIN 400 MG CAP PO SCH ×3 (10:00→23:00)
[2017-05-11] MEDS: ATORVASTATIN 20 MG TAB PO SCH (23:00)
[2017-05-12] VITALS (7 sets, daily range): BP systolic 143–157; BP diastolic 64–86
[2017-05-12 06:29] LABS: BASOPHILS # (AUTO) 0.1 (0.0-0.1); BASOPHILS % 0.6 % (0.0-1.0); EOSINOPHILS # (AUTO) 0.2 (0.0-0.4); EOSINOPHILS % 1.4 % (0.0-6.0); HEMATOCRIT 30.1 % (34.2-44.1); LYMPHOCYTES # (AUTO) 2.6 (1.0-3.2); LYMPHOCYTES % 23.6 % (18.0-39.1); MEAN CORPUSCULAR HEMOGLOBIN 31.4 pg (28-32); MEAN CORPUSCULAR HGB CONC 33.2 g/dL (31-35); MEAN CORPUSCULAR VOLUME 94.7 fL (81-99); MONOCYTES # (AUTO) 1.4 (0.2-0.8); MONOCYTES % 12.8 % (4.4-11.3); NEUTROPHILS # (AUTO) 6.1 (2.1-6.9); NEUTROPHILS % 56.2 % (38.7-80.0); PLATELET COUNT 247 x10e3/uL (140-360); RED BLOOD COUNT 3.18 x10e6/uL (3.6-5.1); RED CELL DISTRIBUTION WIDTH 13.6 % (11.7-14.4)
[2017-05-12] MEDS: PIPER-TAZ 3.375 GM 50 ML IV SCH ×3 (06:36→21:48)
[2017-05-12] MEDS: LEVOTHYROXINE SODIUM 88 MCG TAB PO SCH (06:36)
[2017-05-12 06:57] LABS: ALANINE AMINOTRANSFERASE 9 IU/L (0-55); ALBUMIN 1.6 g/dL (3.5-5.0); ALBUMIN/GLOBULIN RATIO 0.4 (0.8-2.0); ALKALINE PHOSPHATASE 101 IU/L (40-150); ANION GAP 13.9 mmol/L (8-16); BLOOD UREA NITROGEN 24 mg/dL (7-26); BUN/CREATININE RATIO 10 (6-25); CALCIUM 7.9 mg/dL (8.4-10.2); CARBON DIOXIDE 23 mmol/L (22-29); CHLORIDE 108 mmol/L (98-107); CREATININE, SERUM 2.44 mg/dL (0.57-1.11); EST GLOMERULAR FILTRATION RATE 21 ML/MIN (60-); GLUCOSE 207 mg/dL (74-118); POTASSIUM 4.9 mmol/L (3.5-5.1); SODIUM 140 mmol/L (136-145)
[2017-05-12] MEDS: SODIUM CHLORIDE 0.9% 1000ML 1,000 ML IV SCH ×2 (08:00→10:45)
[2017-05-12] MEDS: GABAPENTIN 400 MG CAP PO SCH ×3 (08:00→21:00)
[2017-05-12] MEDS: INSULIN LISPRO 100 UNIT/1 ML 3ML VIAL SQ SCH ×7 (08:26→21:00)
[2017-05-12] MEDS: LORATADINE/PSEUDOEPHEDRINE 24 HR SR TAB PO SCH (08:37)
[2017-05-12] MEDS: PATANASE NS SCH ×2 (08:38→17:00)
[2017-05-12] MEDS: VICTOZA SC SCH (08:38)
[2017-05-12] MEDS: [UNRECOGNIZED DRUG - OTHER] SC SCH (08:38)
[2017-05-12] MEDS: INSULIN DETEMIR 100 UNIT/ML PEN SQ SCH (09:00)
[2017-05-12] MEDS: CLOTRIMAZOLE 1% CR 15 GM TOP SCH (17:00)
[2017-05-12] MEDS: ATORVASTATIN 20 MG TAB PO SCH (21:00)
[2017-05-13] VITALS (8 sets, daily range): BP systolic 120–188; BP diastolic 69–88
[2017-05-13] MEDS: PIPER-TAZ 3.375 GM 50 ML IV SCH ×3 (05:37→22:00)
[2017-05-13] MEDS: LEVOTHYROXINE SODIUM 88 MCG TAB PO SCH (05:37)
[2017-05-13] MEDS: SODIUM CHLORIDE 0.9% 1000ML 1,000 ML IV SCH (05:37)
[2017-05-13] MEDS: INSULIN LISPRO 100 UNIT/1 ML 3ML VIAL SQ SCH ×7 (07:30→21:00)
[2017-05-13 07:50] LABS: CALCIUM 8.5 mg/dL (8.4-10.2); CREATININE, SERUM 2.13 mg/dL (0.57-1.11)
[2017-05-13] MEDS: [UNRECOGNIZED DRUG - OTHER] SC SCH (09:00)
[2017-05-13] MEDS: VICTOZA SC SCH (09:00)
[2017-05-13] MEDS: CLOTRIMAZOLE 1% CR 15 GM TOP SCH ×2 (09:00→17:00)
[2017-05-13] MEDS: PATANASE NS SCH ×2 (09:00→17:00)
[2017-05-13] MEDS: LORATADINE/PSEUDOEPHEDRINE 24 HR SR TAB PO SCH (09:00)
[2017-05-13] MEDS: GABAPENTIN 400 MG CAP PO SCH ×3 (09:34→21:55)
[2017-05-13] MEDS: INSULIN DETEMIR 100 UNIT/ML PEN SQ SCH (09:59)
[2017-05-13] MEDS ORDERED: CLONIDINE HCL 0.1 MG TAB PO PRN (17:45)
[2017-05-13] MEDS: ATORVASTATIN 20 MG TAB PO SCH (21:55)
[2017-05-14] VITALS (7 sets, daily range): BP systolic 137–158; BP diastolic 6–105
[2017-05-14] MEDS: SODIUM CHLORIDE 0.9% 1000ML 1,000 ML IV SCH (02:45)
[2017-05-14] MEDS: LEVOTHYROXINE SODIUM 88 MCG TAB PO SCH (06:13)
[2017-05-14] MEDS: PIPER-TAZ 3.375 GM 50 ML IV SCH ×3 (06:13→21:59)
[2017-05-14] MEDS ORDERED: SOD POLYSTYRENE SULFONATE SUSP 15 GM/60 ML BTL PO PRN (07:30)
[2017-05-14] MEDS: INSULIN LISPRO 100 UNIT/1 ML 3ML VIAL SQ SCH ×7 (07:30→21:00)
[2017-05-14] MEDS ORDERED: FUROSEMIDE 20 MG TAB PO ONE (07:45)
[2017-05-14] MEDS: CLONIDINE HCL 0.1 MG TAB PO PRN (08:01)
[2017-05-14] MEDS: VICTOZA SC SCH (08:06)
[2017-05-14] MEDS: LORATADINE/PSEUDOEPHEDRINE 24 HR SR TAB PO SCH (08:06)
[2017-05-14] MEDS: GABAPENTIN 400 MG CAP PO SCH ×3 (08:06→21:30)
[2017-05-14] MEDS: [UNRECOGNIZED DRUG - OTHER] SC SCH (08:06)
[2017-05-14] MEDS: PATANASE NS SCH ×2 (08:07→16:26)
[2017-05-14] MEDS: CLOTRIMAZOLE 1% CR 15 GM TOP SCH ×2 (08:08→16:25)
[2017-05-14] MEDS: INSULIN DETEMIR 100 UNIT/ML PEN SQ SCH (08:08)
[2017-05-14 08:18] LABS: BASOPHILS # (AUTO) 0.1 (0.0-0.1); BASOPHILS % 0.5 % (0.0-1.0); EOSINOPHILS # (AUTO) 0.2 (0.0-0.4); EOSINOPHILS % 1.8 % (0.0-6.0); HEMOGLOBIN 9.7 g/dL (12.0-16.0); LYMPHOCYTES # (AUTO) 3.2 (1.0-3.2); LYMPHOCYTES % 26.6 % (18.0-39.1); MEAN CORPUSCULAR HEMOGLOBIN 31.1 pg (28-32); MEAN CORPUSCULAR HGB CONC 32.3 g/dL (31-35); MEAN CORPUSCULAR VOLUME 96.2 fL (81-99); MONOCYTES # (AUTO) 0.9 (0.2-0.8); MONOCYTES % 7.7 % (4.4-11.3); NEUTROPHILS # (AUTO) 7.1 (2.1-6.9); NEUTROPHILS % 59.8 % (38.7-80.0); PLATELET COUNT 309 x10e3/uL (140-360); RED BLOOD COUNT 3.12 x10e6/uL (3.6-5.1); RED CELL DISTRIBUTION WIDTH 13.9 % (11.7-14.4)
[2017-05-14 09:46] LABS: ALANINE AMINOTRANSFERASE 9 IU/L (0-55); ALBUMIN 1.9 g/dL (3.5-5.0); ALBUMIN/GLOBULIN RATIO 0.5 (0.8-2.0); ALKALINE PHOSPHATASE 74 IU/L (40-150); ANION GAP 14.9 mmol/L (8-16); BLOOD UREA NITROGEN 21 mg/dL (7-26); BUN/CREATININE RATIO 11 (6-25); CALCIUM 8.3 mg/dL (8.4-10.2); CARBON DIOXIDE 23 mmol/L (22-29); CHLORIDE 111 mmol/L (98-107); EST GLOMERULAR FILTRATION RATE 26 ML/MIN (60-); GLUCOSE 147 mg/dL (74-118); POTASSIUM 4.9 mmol/L (3.5-5.1); SODIUM 144 mmol/L (136-145)
[2017-05-14 12:48] LABS: BAND NEUTROPHILS % (MANUAL) 1 %; EOSINOPHILS % (MANUAL) 2 % (0-7); LYMPHOCYTES % (MANUAL) 22 % (19-48); MONOCYTES % (MANUAL) 11 % (3.4-9.0); NEUTROPHILS % (MANUAL) 64 % (40-74); PLATELET ESTIMATE ADEQUATE; PLATELET MORPHOLOGY COMMENT NORMAL; RBC MORPHOLOGY COMMENT NORMAL
[2017-05-14] MEDS: ATORVASTATIN 20 MG TAB PO SCH (21:30)
[2017-05-15] VITALS (8 sets, daily range): BP systolic 139–192; BP diastolic 63–96
[2017-05-15] MEDS: LEVOTHYROXINE SODIUM 88 MCG TAB PO SCH (05:50)
[2017-05-15] MEDS: PIPER-TAZ 3.375 GM 50 ML IV SCH ×3 (05:50→21:51)
[2017-05-15 07:06] LABS: BASOPHILS # (AUTO) 0.1 (0.0-0.1); BASOPHILS % 0.4 % (0.0-1.0); EOSINOPHILS # (AUTO) 0.2 (0.0-0.4); EOSINOPHILS % 1.6 % (0.0-6.0); HEMOGLOBIN 9.4 g/dL (12.0-16.0); LYMPHOCYTES # (AUTO) 2.8 (1.0-3.2); LYMPHOCYTES % 22.3 % (18.0-39.1); MEAN CORPUSCULAR HEMOGLOBIN 31.1 pg (28-32); MEAN CORPUSCULAR HGB CONC 32.4 g/dL (31-35); MONOCYTES # (AUTO) 0.9 (0.2-0.8); MONOCYTES % 7.4 % (4.4-11.3); NEUTROPHILS # (AUTO) 8.2 (2.1-6.9); NEUTROPHILS % 65.6 % (38.7-80.0); PLATELET COUNT 304 x10e3/uL (140-360); RED BLOOD COUNT 3.02 x10e6/uL (3.6-5.1); RED CELL DISTRIBUTION WIDTH 13.6 % (11.7-14.4)
[2017-05-15] MEDS: INSULIN LISPRO 100 UNIT/1 ML 3ML VIAL SQ SCH ×7 (07:30→21:00)
[2017-05-15 07:54] LABS: ANION GAP 13.5 mmol/L (8-16); CALCIUM 8.2 mg/dL (8.4-10.2); CREATININE, SERUM 1.65 mg/dL (0.57-1.11); POTASSIUM 4.5 mmol/L (3.5-5.1)
[2017-05-15 08:24] LABS: BLAST CELLS % MANUAL 1; EOSINOPHILS % (MANUAL) 1 % (0-7); LYMPHOCYTES % (MANUAL) 21 % (19-48); MONOCYTES % (MANUAL) 7 % (3.4-9.0); NEUTROPHILS % (MANUAL) 69 % (40-74)
[2017-05-15] MEDS: LORATADINE/PSEUDOEPHEDRINE 24 HR SR TAB PO SCH (08:24)
[2017-05-15] MEDS: PATANASE NS SCH ×2 (08:24→16:24)
[2017-05-15] MEDS: GABAPENTIN 400 MG CAP PO SCH ×3 (08:24→21:51)
[2017-05-15 08:25] LABS: ANISOCYTOSIS SLIGHT; HYPOCHROMASIA SLIGHT; PLATELET ESTIMATE ADEQUATE; PLATELET MORPHOLOGY COMMENT NORMAL; RBC MORPHOLOGY COMMENT NORMAL
[2017-05-15] MEDS: VICTOZA SC SCH (08:25)
[2017-05-15] MEDS: [UNRECOGNIZED DRUG - OTHER] SC SCH (08:25)
[2017-05-15] MEDS: INSULIN DETEMIR 100 UNIT/ML PEN SQ SCH (08:26)
[2017-05-15] MEDS: CLOTRIMAZOLE 1% CR 15 GM TOP SCH ×2 (08:27→16:25)
[2017-05-15] MEDS ORDERED: LEVAQUIN500 MG PO (09:41)
[2017-05-15] MEDS ORDERED: METRONIDAZOLE500 MG PO (09:41)
[2017-05-15] MEDS ORDERED: LIPITOR20 MG PO (11:31)
[2017-05-15] MEDS ORDERED: COZAAR50 MG PO (11:32)
[2017-05-15] MEDS ORDERED: LANTUS 3ML100 UNITS/ SQ (11:32)
[2017-05-15] MEDS ORDERED: NOVOLOG100 UNIT/1 SQ (11:33)
[2017-05-15] MEDS: CLONIDINE HCL 0.1 MG TAB PO PRN (12:21)
--- NOTE | 2017-05-15 12:55 | Discharge Summary ---
This is a 52-year-old female patient of mine presented with a complaint of right buttock abscess. ADMITTING IMPRESSION/DIAGNOSES 1. Right buttock abscess. 2. Diabetes mellitus with severe hyperglycemia secondary to infection and noncompliance. 3. Edglg-ou-vnifozi renal failure. 4. Hypertension. 5. Obesity. HOSPITAL COURSE SUMMARY: Patient was admitted with the above diagnosis and surgery consultation was done, Dr. Mata and patient was taken to the OR and patient underwent surgery. Postop, patient had a worsening renal failure, so renal consult was done and ID consultation was done and patient was treated with IV antibiotic. Patient was given vancomycin, which was hold because of the renal failure and then, patient was treated with Zosyn and aggressive wound care was given. Wound VAC was also placed. Patient was advised for the LTAC as patient was not able to reach for outpatient wound care. LTAC was denied by the insurance company. So, patient will be discharged home and outpatient wound care will be arranged for patient. Patient need daily wound care. Patient was advised for the compliance for her diet and insulin treatment and controlling blood sugar and controlling proper care of her wound to prevent any complication and any more infection. BEV RANDALL MD Job#: [id number] [facility]
[2017-05-15] MEDS: ATORVASTATIN 20 MG TAB PO SCH (21:51)
[2017-05-15] MEDS ORDERED: SODIUM CHLORIDE 0.9% 250ML 250 ML ONE (22:19)
[2017-05-16] VITALS: BP 169/95
[2017-05-16 04:00] VITALS: BP 165/81
[2017-05-16] MEDS: LEVOTHYROXINE SODIUM 88 MCG TAB PO SCH (06:10)
[2017-05-16] MEDS: PIPER-TAZ 3.375 GM 50 ML IV SCH (06:10)
[2017-05-16 07:17] LABS: ANION GAP 13.6 mmol/L (8-16); CALCIUM 8.6 mg/dL (8.4-10.2); CREATININE, SERUM 1.54 mg/dL (0.57-1.11); POTASSIUM 4.6 mmol/L (3.5-5.1)
[2017-05-16] MEDS: INSULIN LISPRO 100 UNIT/1 ML 3ML VIAL SQ SCH ×2 (07:30)
[2017-05-16 08:00] VITALS: BP 188/83
[2017-05-16] MEDS: INSULIN DETEMIR 100 UNIT/ML PEN SQ SCH (09:00)
[2017-05-16] MEDS ORDERED: FUROSEMIDE INJ 10 MG/ML 2 ML VIAL IV SCH (09:00)
[2017-05-16] MEDS: LORATADINE/PSEUDOEPHEDRINE 24 HR SR TAB PO SCH (09:32)
[2017-05-16] MEDS: GABAPENTIN 400 MG CAP PO SCH (09:33)
[2017-05-16] MEDS: CLOTRIMAZOLE 1% CR 15 GM TOP SCH (09:41)
[2017-05-16 12:00] VITALS: BP 186/103
[2017-05-17] MEDS ORDERED: AMLODIPINE BESYLATE 5 MG TAB PO SCH (09:00)
== END 2017-05-16 16:50 | disposition home or self-care (01) | DRG 853 ==
LOC: ER 13:41 → MED/SURG2 21:29
PROVIDERS: ADMIT Internal Medicine; ATTEND Internal Medicine
PROC: 0JB90ZZ Excision of Buttock Subcutaneous Tissue and Fascia, Open Approach (ICD-10-PCS; principal; 2017-05-05 14:49)
DX: A41.9 Sepsis, unspecified organism (principal); N17.0 Acute kidney failure with tubular necrosis; E87.2 Acidosis; L02.31 Cutaneous abscess of buttock; Z68.41 Body mass index [BMI] 40.0-44.9, adult; E11.65 Type 2 diabetes mellitus with hyperglycemia; E78.5 Hyperlipidemia, unspecified; E03.9 Hypothyroidism, unspecified; R19.7 Diarrhea, unspecified; K21.9 Gastro-esophageal reflux disease without esophagitis; E11.42 Type 2 diabetes mellitus with diabetic polyneuropathy; R65.20 Severe sepsis without septic shock; E11.22 Type 2 diabetes mellitus with diabetic chronic kidney disease; I12.9 Hypertensive chronic kidney disease with stage 1 through stage 4 chronic kidney disease, or unspecified chronic kidney disease; N18.9 Chronic kidney disease, unspecified; E87.6 Hypokalemia; D64.9 Anemia, unspecified; B96.20 Unspecified Escherichia coli [E. coli] as the cause of diseases classified elsewhere; Z91.19 Patient's noncompliance with other medical treatment and regimen; E66.9 Obesity, unspecified
CPT/HCPCS: 36415; 71020; 74176; 76770; 80048; 80053; 80061; 80202; 81001; 81015; 82570; 82948; 83036; 83605; 83735; 84100; 84156; 84300; 84443; 85025; 85610; 87040; 87071; 87075; 87186; 87205; 87493; 88304; 88305; 93005; 96372; 97606; 99284; J1940; J2001; J2250; J2405; J2543; J3370; J3475; J3480; J7030; J7040; J7050; J7799

== ENCOUNTER → 2019-06-14 | Outpatient (CLI) | payer BC, OTHER ==
[~2019-06-14] MED LIST: ATORVASTATIN CA20 MG PO; CETIRIZINE HCL10 MG PO; CLARITIN-D 241 EACH PO; COZAAR50 MG PO; GABAPENTIN400 MG PO; HYDROCHLOROTHIA25 MG PO; LANTUS 3ML100 UNITS/ SQ; LEVAQUIN500 MG PO; LEVOTHYROXINE88 MCG PO; LIPITOR20 MG PO; LOSARTAN POTAS100 MG PO; METFORMIN HCL500 MG PO; METRONIDAZOLE500 MG PO; NAPROXEN500 MG PO; NOVOLOG100 UNIT/1 SQ; PATANASE30.5 GM NS; VICTOZA 2-0.6 MG/0.1 SQ
--- NOTE | 2019-06-14 10:12 | Diagnostic Imaging Report ---
Renal ultrasound, 06/14/2019. History: Diabetes. Cystitis with hematuria. Discussion: Transverse and longitudinal images of the kidneys were obtained demonstrating normal renal sizes and echogenicities. There is no evidence of hydronephrosis, mass, or renal calculus. The right kidney measures 10.7 cm and the left kidney measures 11.6 cm in length. Renal cortex measures 1.0 and 1.8 cm respectively. The urinary bladder is unremarkable. Bilateral ureteral jets are identified. Bladder volume measures 721 mL. There is no evidence of free fluid. IMPRESSION: Normal renal ultrasound. Signed by: Adam Girard on 06/14/2019 10:10 AM
== END ==
LOC: US 08:37
PROVIDERS: ATTEND Internal Medicine
DX: N30.01 Acute cystitis with hematuria (principal); E11.51 Type 2 diabetes mellitus with diabetic peripheral angiopathy without gangrene; I73.9 Peripheral vascular disease, unspecified
CPT/HCPCS: 76770; 93925

== ENCOUNTER → 2019-06-25 | Outpatient (CLI) | payer BC, OTHER ==
--- NOTE | 2019-06-25 11:48 | Diagnostic Imaging Report ---
Exam: Lumbar spine series Clinical history: Low back pain Findings: There is no evidence of acute fracture or malalignment. The vertebral bodies and disc heights are within normal limits. The soft tissue is unremarkable. Impression: 1. No radiographic evidence of acute osseous injury or significant degenerative changes. Signed by: Dr. Ramu Alicea MD on 06/25/2019 11:45 AM
== END ==
LOC: RAD 10:14
PROVIDERS: ATTEND Internal Medicine
DX: M54.5 Low back pain (principal)
CPT/HCPCS: 72110